=== PATIENT | male | born 1965 | race African-American/Black ===

== ENCOUNTER 2016-03-28 08:09 | Outpatient (CLI) | payer MEDICARE ==
[2016-02-29 12:56] VITALS: BP 125/88
== END 2016-03-28 08:10 ==
LOC: LAB 08:09
PROVIDERS: ATTEND Family Medicine
DX: R10.13 Epigastric pain (principal); Z12.5 Encounter for screening for malignant neoplasm of prostate
CPT/HCPCS: 36415; 84153; 86677; G0103

== ENCOUNTER 2016-06-03 11:42 | Day surgery (SDC) | payer MEDICARE ==
[2016-02-29 12:56] VITALS: BP 125/88
[~2016-06-03 11:42] MED LIST: LACTATED RINGERS 1,000 ML IV.SOLN IV ONE; LIDOCAINE HCL/PF 2% 100 MG/5 ML VIAL IJ ONE; PROPOFOL 200 MG/20 ML VIAL IV ONE; SALINE FLUSH 10 ML DISP.SYRIN IVF ONE
--- NOTE | 2016-06-04 14:07 | GI Report ---
REFERRING PHYSICIAN: Dr. Dominguez Bains CHIEF POWER DISPATCHER: Fuentes Mock MD PROCEDURE MEDICATION: Propofol as per anesthesia. INDICATIONS: This is a 51-year-old who has had epigastric discomfort and sometimes feels kind of a rotten taste in his throat that he may awaken with in the morning. He is taking omeprazole once a day. He is on a number of medications for his blood pressure. He is 6 feet 1 inch and weighs 106 kilograms. He denies using tobacco and rare alcohol. He did have a colonoscopy in February by Dr. Barber that reportedly was normal. He has never had his upper stomach looked at. He denies taking nonsteroidal's. The patient is blind in his right eye. PROCEDURE PERFORMED: Endoscopy and biopsies. PROCEDURE: An Freeze Tag video endoscope was passed through the esophagus under direct visualization. He does have grade 2 esophagitis at the GE junction that was biopsied. It does not look like Lainez's. Cardia of the stomach, fundus, body , and antrum, he does diffuse gastritis. Biopsies for pathology. Duodenal bulb, first and second part of the duodenum were examined and were normal. Patient tolerated the procedure well. FINDINGS: 1. Diffuse gastritis. 2. Esophagitis. RECOMMENDATIONS: 1. Pending the biopsy results, I would continue on a PPI at a half hour before the first meal and would take an antacid, like Gaviscon, at bedtime. 2. Elevate the head of the bed about 3 inches on boards or blocks. 3. If symptoms persist, considerations of doing a CAT scan of the abdomen or an ultrasound looking at the liver and gallbladder. 4. Follow up with Dr. Bains. cc: Dr. Dominguez PADILLA
== END 2016-06-03 11:43 ==
LOC: OPSURG 11:42
PROVIDERS: ATTEND Internal Medicine Gastroenterology
DX: K29.70 Gastritis, unspecified, without bleeding (principal); K20.9 Esophagitis, unspecified; R10.9 Unspecified abdominal pain
CPT/HCPCS: 43235; 45385; J2001; J2704; J7120; S1016

== ENCOUNTER 2017-12-25 08:36 | Outpatient (CLI) | payer MEDICARE ==
[2016-02-29 12:56] VITALS: BP 125/88
[2017-12-25 09:37] LABS: eGFR (Non-African) > 60
== END 2017-12-25 08:38 ==
LOC: LAB 08:36
PROVIDERS: ATTEND Family Medicine
DX: I10 Essential (primary) hypertension (principal); R73.9 Hyperglycemia, unspecified
CPT/HCPCS: 36415; 80053; 80061; 83036

== ENCOUNTER 2018-03-26 08:22 | Outpatient (CLI) | payer MEDICARE, OTHER ==
[2016-02-29 12:56] VITALS: BP 125/88
--- NOTE | 2018-03-26 19:03 | Diagnostic Imaging Report ---
TYRONE CORREA [facility] [id number] [facility] [address] [place], [place]. [address] Report Submission Date: Mar 26, 2018 10:11:10 AM SPIKE DRIVER Patient Study Name: ARSENIO LAUREN Date: Mar 26, 2018 8:58:49 AM SPIKE DRIVER Modality Type: CT\SR Gender: M Description: CT ABD PELVIS W/ CON : 67 Institution: [facility] Physician: TYRONE CORREA Examination: CT Abdomen/pelvis History: EPIGASTRIC PAIN, PT STATES STOMACH PAIN AND RECENT COLONOSCOPY AND ENDOSCOPY. PT GIVEN A BOTTLE OF WATER BEFORE EXAM (Hx Comparison exams: None available Technique: CT Abdomen/pelvis with IV protocol. Findings: Liver demonstrates mild diffuse low attenuation. No central lesion. Spleen, adrenals, pancreas, kidneys and gallbladder are without gross irregularity given exam technique. No gallstone. No suspicious renal calcifications. Ureters are nondilated in their course through the abdomen and pelvis. No central calcifications. Bladder margin within normal limits. Abdominal aorta without aneurysm. Mild peripheral atherosclerotic disease. Cardiac silhouette is not enlarged. No pericardial effusion. Bowel unopacified limiting evaluation. No abnormal dilation. Stool within the large bowel limiting sensitivity. No mesenteric inflammatory changes or free fluid. Appendix is visualized and is without inflammatory changes. Umbilical hernia with fat involvement. Osseous structures demonstrate degenerative changes. Lung bases demonstrate parenchymal scarring without infiltrate. No effusion. Impression: No acute upper abdominal organ inflammatory process. No abnormal bowel dilation or inflammation. Umbilical hernia with fat involvement. Fatty liver. No gallstone. No suspicious renal calcifications or abnormal ureteric dilation. No lung base consolidation or effusion. Electronically signed on Mar 26, 2018 10:11:10 AM SPIKE DRIVER by: Alex PADILLA
== END 2018-03-26 08:23 ==
LOC: RAD 08:22
PROVIDERS: ATTEND Family Medicine
DX: K42.9 Umbilical hernia without obstruction or gangrene (principal); K76.0 Fatty (change of) liver, not elsewhere classified; R10.13 Epigastric pain
CPT/HCPCS: 74177; Q9967

== ENCOUNTER 2018-05-11 08:57 | Emergency (ER) | payer MEDICARE, OTHER ==
[2018-05-11] MEDS ORDERED: KETOROLAC TROMETHAMINE 60 MG/2 ML VIAL IM ONE (09:35)
--- NOTE | 2018-05-11 09:38 | ED Physician Documentation ---
Ear Complaints - HISTORIAN Historian: patient - HPI Stated Complaint: L ear pain Chief Complaint: Ear Complaints Timing: still present Further Comments: yes (53 year old male patient presents with complaint of left ear pain which started this morning. 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.) - ROS CONST: no problems CVS/RESP: none GI/: denies: nausea, vomiting MS/SKIN/LYMPH: none NEURO/PSYCH: none All Systems -: Yes - PAST HX Past History: other (HTN, depression) Allergies/Adverse Reactions: Allergies Allergy/AdvReac Type Severity Reaction Status Date / Time No Known Drug Allergies Allergy Verified 05/11/18 09:14 Home Medications: Ambulatory Orders Medication Instructions Recorded Amoxicillin [Trimox] 500 mg PO TID #30 capsule 05/11/18 Clonazepam 1 mg PO TID 05/11/18 Venlafaxine HCl [Effexor Xr] 150 mg PO D 05/11/18 - SOCIAL HX Smoking History: non-smoker - FAMILY HX Family History: No - VITAL SIGNS Vital Signs: Vital Signs Temp Pulse Resp BP Pulse Ox 97.0 F L 91 H 19 158/113 99 05/11/18 09:07 05/11/18 09:07 05/11/18 09:07 05/11/18 09:07 05/11/18 09:07 - REVIEWED ASSESSMENTS Nursing Assessment Reviewed: Yes Vitals Reviewed: Yes ED Results Lab/Radiology - Orders Orders: ED Orders Category Date Time Status Ketorolac Tromethamine [Toradol] Med 05/11/18 09:35 Once 60 mg IM NOW ONE Ear Complaint Physical Exam - EXAM General Appearance: moderate distress Ear: auricle nml, ems coordinator.canal nml, left, erythema, bulging of TM (left with erythema) Resp/CVS: chest non-tender, breath sounds nml, heart sounds nml Abdomen: non-tender, no organomegaly Skin: nml color, no skin rash Neuro/Psych: oriented x3, mood/affect nml Discharge Clincal Impression: Otitis media Qualifiers: Otitis media type: suppurative Chronicity: acute Laterality: left Recurrence: non-recurrent Spontaneous tympanic membrane rupture: without spontaneous rupture Qualified Code(s): H66.002 - Acute suppurative otitis media without spontaneous rupture of ear drum, left ear Prescriptions: Amoxicillin [Trimox] 500 mg PO TID #30 capsule Referrals: Dominguez Bains MD [Primary Care Provider] - 2 Days Additional Instructions: unit support representative your prescription and start it today. You may want to use cotton in the ear when you shower or bathe Alternate with Ibuprofen 600-800mg three times a day with food as needed. Do not take for more than 5 days in a row. You may use Tylenol every 4hour as needed for pain. Limit your dose to less than 4 G per day. Condition: Stable Disposition: 01 HOME, SELF-CARE Decision to Admit: NO Decision Time: 09:38
[2018-05-11 09:49] VITALS: BP 142/91
== END 2018-05-11 09:47 | disposition home or self-care (01) ==
LOC: ED 08:57
DX: H66.002 Acute suppurative otitis media without spontaneous rupture of ear drum, left ear (principal)
CPT/HCPCS: 96372; 99283; J1885